=== PATIENT | male | born 2000 | race Caucasian/White ===

== ENCOUNTER 2020-04-13 09:30 | Outpatient (CLI) | payer MEDICAID, SELFPAY ==
--- NOTE | 2020-04-13 09:30 | RT.EKG_ITS ---
APPROVED REPORT Exam: Resting ECG Patient Location: O HR:62 bpm ECG Measurements Heart Rate 62 AXIS VA 152 P 54 QRSd 98 QRS 81 QT 395 T 51 QTc 401 Conclusion Sinus rhythm...normal P axis, V-rate 60- 99 ST elev, probable normal early repol pattern...ST elevation, age<55
== END 2020-04-13 09:31 | disposition home or self-care (01) ==
LOC: DI.KIM 09:33
PROVIDERS: PCP Nurse Practitioner; Visit Provider Nurse Practitioner
DX: R06.09 Other forms of dyspnea (principal)
CPT/HCPCS: 93010

== ENCOUNTER 2020-05-04 00:46 | Outpatient (CLI) | payer MEDICAID, SELFPAY ==
--- NOTE | 2020-05-04 07:26 | DI.US_ITS ---
APPROVED REPORT EXAM: Comprehensive 2D, Doppler, and color-flow Echocardiogram Patient Location: Out-Patient Aemt: Josephine Torres RDCS ([facility]) Indications: PUCKETT Other Information Study Quality: Good Conclusion Left Ventricle : The left ventricle is normal size. The left ventricular systolic function is normal. The left ventricular ejection fraction is within the normal range. There is normal left ventricular wall thickness. There is normal LV segmental wall motion. The left ventricular diastolic function is normal. LVEF is 60%. Right Ventricle : The right ventricle is normal size. The right ventricular systolic function is norm al. The RVSP is 23.7mmHg. Atria : The left atrium size is normal. The right atrium size is normal. Valves: There are no hemodynamically significant valvular lesions. Great Vessels : The aortic root is normal in size. The ascending aorta is normal in size. Aortic arch is normal in caliber. IVC is normal in size and collapses >50% with inspiration. Please see remainder of study for further details. Wall motion Left Ventricle The left ventricle is normal size. The left ventricular systolic function is normal. The left ventric ular ejection fraction is within the normal range. There is normal left ventricular wall thickness. T here is normal LV segmental wall motion. The left ventricular diastolic function is normal. There is no ventricular septal defect visualized. LVEF is 60%. Right Ventricle The right ventricle is normal size. The right ventricular systolic function is normal. The RVSP is 23 .7mmHg. Atria The left atrium size is normal. The right atrium size is normal. The interatrial septum is intact wit h no evidence for an atrial septal defect. Aortic Valve The aortic valve is normal in structure. Aortic valve is trileaflet. There is no aortic valvular sten osis. No aortic regurgitation is present. Mitral Valve The mitral valve is normal in structure. No evidence of mitral valve stenosis. Trace mitral regurgita tion. Tricuspid Valve The tricuspid valve is normal in structure. There is no tricuspid valve stenosis. Trace tricuspid reg urgitation. Pulmonic Valve The pulmonary valve is normal in structure. There is no pulmonic valvular stenosis. Trace pulmonic re gurgitation. Great Vessels The aortic root is normal in size. The ascending aorta is normal in size. Aortic arch is normal in ca liber. IVC is normal in size and collapses >50% with inspiration. Pericardium There is no pericardial effusion. 2D Dimensions IVSD d PLAX 0.74 cm M: 0.6-1.2 LV Vol A2C d MOD 129.7 mL LVPW d PLAX 0.75 cm M: 0.6 - 1.2 LV Vol A4C d MOD 131.3 mL LVID d PLAX 5.20 cm M: 4.2 - 5.8 LA vol/ BSA A2C s A-L 17.5 mL/m2 LVDs 3.30 cm M: 2.5 - 4.0 LA vol/ BSA A4C s A-L 27.5 mL/m2 Ao Root d 2.55 cm M: 3.1 - 3.7 LA Vol/ BSA Biplane s A-L 23.4 mL/m2 RA Area A4C 13.54 cm2 LA Area A4C s MOD 17.77 cm2 RA Vol/ BSA A4C s A-L 19.2 mL/m2 LA Area A2C s MOD 13.32 cm2 Ao Asc Diam d 2.80 cm M: 2.6 - 3.4 LV EF A4C MOD 60.1 % LV EF Teichholz 65.6 % LV EF A2C MOD 60.6 % LVEF (Hayes's) 59.02 % M: 52 - 72 LV EF Biplane MOD 59.0 % LV Volume 100.25 mL M: 62 - 150 SV 77.91 mL LV Volume Index 52.21 mL/m2 M: 34 - 74 SV Index 40.41 mL/m2 LV Vol Biplane MOD 132.0 mL FS 36.25 % M-Mode TAPSE 2.21 cm (M/F) >1.7 LV Diastology MV E' medial 0.111 (>0.07 m/s) E/A Ratio 2.8 LV E/e MED 8.75 (<14) MV E Vmax 0.98 (0.4-1.3 m/s) MV E' lateral 0.207 (>0.1 m/s) MV A Vmax 0.35 (0.4-1.3 m/s) LV E/e LAT 4.70 (<14) MV E/A Ratio 2.50 MV E/E' medial 8.79 MV E/E' lateral 4.73 Aortic Valve LVOT Area 3.64 cm2 AoV Area Vmax 3.30 cm2 LVOT Vmax 1.22 m/s AoV Area/ BSA (Vmax) 1.71 cm2/m2 LVOT Mean Gabo. 0.73 m/s MERE Mean Gabo. 2.87 cm2 LVOT Peak Grad 5.9 mmHg MERE Mean Gabo. Index 1.49 cm2/m2 LVOT Mean Grad 2.6 mmHg LVOT VTI 0.258 m LVOT Diam s 2.15 cm AoV Vmax 1.34 m/s Velocity Ratio 0.91 AoV Mean Gabo. 0.92 m/s AoV Peak Grad 7.2 mmHg LVOT SV 94.03 mL AoV Mean Grad 3.8 mmHg AoV VTI 0.273 m AoV Area VTI 3.44 cm2 AoV Area/ BSA (VTI) 1.79 cm/m2 Mitral Valve MV DT 232 (160-240 msec) MV PHT 67 msec MV Area PHT 3.27 cm2 MV VTI 0.287 m MV Area VTI 3.27 (4.0-6.0 cm2) Pulmonary Valve PV Vmax 1.09 (0.5-1.5 m/s) RVOT Peak Gr. 3.38 mmHg PV Peak Grad 4.7 mmHg RVOT Mean Gr. 1.60 mmHg PV Mean Grad 2.5 mmHg RVOT VTI 0.192 m PV VTI 0.225 m RVOT Vmax 0.92 m/s Tricuspid Valve TR Peak Grad 20.6 mmHg TR Vmax 2.27 m/s RA Pressure 3.00 mmHg RVSP (TR) 23.7 mmHg
== END 2020-05-04 01:06 ==
PROVIDERS: PCP Nurse Practitioner; Visit Provider Nurse Practitioner
DX: R06.09 Other forms of dyspnea (principal)
CPT/HCPCS: 93306

== ENCOUNTER 2020-05-04 04:01 | Outpatient (CLI) | payer MEDICAID, SELFPAY ==
[2020-05-04 07:40] LABS: HCT 43.7 % (40.0-50.0); HGB 14.4 g/dL (13.5-17.5); MCV 81.8 fL (80-95); MPV 10.9 fL (8.0-11.0); Platelet Count 211 10^3/uL (130-400); RBC 5.34 10^6/uL (4.36-5.78); RDW 12.5 % (11.8-14.1); RDW-SD 37.5 fL
[2020-05-04 08:28] LABS: C-Reactive Protein 0.06 mg/dL (0.0-0.3); TSH (W/Ref FT4) 1.78 uIU/mL (0.36-3.74)
[2020-05-04 11:30] LABS: ESR 3 mm/hr (<or=15)
[2020-05-04 17:24] LABS: Rheumatoid Factor <8.6 IU/mL (<12.0)
[2020-05-05 06:05] LABS: Vitamin D 25 Total 23.4 ng/ml (30-100)
[2020-05-05 10:15] LABS: Lyme Ab w Rflx to Lyme Confirm Negative (Negative)
[2020-05-05 16:04] LABS: ANA Interpretation Negative (Negative)
== END 2020-05-04 04:02 | disposition home or self-care (01) ==
LOC: LBO 04:02
PROVIDERS: PCP Nurse Practitioner; Visit Provider Nurse Practitioner
DX: I10 Essential (primary) hypertension (principal); F41.9 Anxiety disorder, unspecified; M25.59 Pain in other specified joint; E55.9 Vitamin D deficiency, unspecified
CPT/HCPCS: 36415; 82306; 85027; 85652; 84443; 86038; 86140; 86431; 86618